=== PATIENT | female | born 1950 | race Caucasian/White ===

== ENCOUNTER 2021-02-18 12:49 | Outpatient (CLI) | payer MEDICARE ==
[2021-02-19 12:37] LABS: SARS-CoV-2 PCR by NAA Not Detected (NotDetected)
== END 2021-02-18 12:50 | disposition home or self-care (01) ==
LOC: LABBT 12:49
PROVIDERS: ATTEND Ophthalmology Retina Specialist
DX: Z01.812 Encounter for preprocedural laboratory examination (principal); H35.371 Puckering of macula, right eye; Z20.822 Contact with and (suspected) exposure to COVID-19
CPT/HCPCS: U0003; U0005

== ENCOUNTER 2021-02-21 07:42 | Day surgery (SDC) | payer MEDICARE ==
[2021-02-20 16:14] VITALS: BMI 22.8
[~2021-02-21 07:42] MED LIST: Cyclopentolate 1% Opth Drop 2 ML BOT FS SCH; Fentanyl 100 MCG/2 ML VIAL ONE; Fluorouracil 100 MG, Enoxaparin Sodium 25 MG, EPINEPHrine 0.3 MG in Ophthalmic Irrigati... IRR SCH; Midazolam HCl 2 mg/2 ml Vial ONE; Phenylephrine 2.5% Ophth Soln 5 ML BOT FS SCH
[2021-02-21] MEDS ORDERED: Phenylephrine 2.5% Ophth Soln 5 ML BOT ONE (08:25)
[2021-02-21] MEDS ORDERED: Cyclopentolate 1% Opth Drop 2 ML BOT ONE (08:25)
[2021-02-21] MEDS ORDERED: Indocyanine Green 25 MG/10 ML VIAL ONE (08:51)
[2021-02-21] MEDS ORDERED: Enoxaparin Sodium 30 MG/0.3 ML SYRINGE ONE (08:51)
[2021-02-21] MEDS ORDERED: CEFAZOLIN 1 GM VIAL ONE (08:51)
[2021-02-21] MEDS ORDERED: Bupivacaine PF 0.75% SDV 10 ML ONE (08:51)
[2021-02-21] MEDS ORDERED: Maxitrol 0.1% Opth Oint 3.5 GM TUBE ONE (08:51)
[2021-02-21] MEDS ORDERED: Triamcinolone 40 MG/ML VIAL ONE (08:51)
[2021-02-21] MEDS ORDERED: PROPOFOL 200 MG/20 ML VIAL ONE (08:51)
[2021-02-21] MEDS ORDERED: Lidocaine 4% PF 5 ML AMP ONE (08:51)
[2021-02-21] MEDS ORDERED: Lidocaine 1% PF 5 ML VIAL ONE (08:51)
== END 2021-02-21 10:00 | disposition home or self-care (01) ==
LOC: SDC 07:42
PROVIDERS: ATTEND Ophthalmology Retina Specialist
PROC: 08T43ZZ Resection of Right Vitreous, Percutaneous Approach (ICD-10-PCS; principal; 2021-02-21)
PROC: 08NE3ZZ Release Right Retina, Percutaneous Approach (ICD-10-PCS; 2021-02-21)
DX: H35.371 Puckering of macula, right eye (principal); Z79.83 Long term (current) use of bisphosphonates; Z79.899 Other long term (current) drug therapy; Z98.41 Cataract extraction status, right eye; Z98.42 Cataract extraction status, left eye; Z96.1 Presence of intraocular lens
CPT/HCPCS: J0171; J0690; J1650; J2250; J2704; J3010; J3301; J3490; J9190